=== PATIENT | female | born 1975 | race Caucasian/White ===

== ENCOUNTER 2019-09-09 06:42 | Inpatient (IN) ==
[~2019-09-09 06:42] MED LIST: LIDOCAINE W/ SODIUM BICARB 0.5 ML SYR ONE; LIDOCAINE W/ SODIUM BICARB 0.5 ML SYR SUBD ONE; Lactated Ringers 1,000 ML PRIMARY IV ONE; Nasal Sanitizer POPSWAB ampule 3 AMP (Nozin) PREOP DOSE ENOS SCH; Sodium Chloride 0.9% 250 ML ONE; Vancomycin Inj 1.25gm vial IV ONE; Vancomycin-PHA to Dose IV PRN; ceFAZolin Inj 2gm (Premix) 2 GM/50 ML BAG IV ONE
[2019-09-09 07:00] LABS: BILIRUBIN,URINE NEGATIVE (NEG); CLARITY,URINE CLEAR (CLEAR); COLOR,URINE YELLOW (Y); GLUCOSE, URINE (UA) NEGATIVE (NEG); OCCULT BLOOD,URINE NEGATIVE (NEG); PH,URINE 6.5 (5.0-8.5); PROTEIN,URINE NEGATIVE (NEG); UROBILINOGEN,URINE 0.2 EU/dL (0.2)
[2019-09-09 07:07] LABS: URINE SAMPLE TYPE CLEAN CATCH URINE; URINE SPECIFIC GRAVITY - MAN 1.015
[2019-09-09] MEDS ORDERED: fentaNYL Inj 250 MCG/5 ML VIAL ONE ×3 (07:11→14:11)
[2019-09-09] MEDS ORDERED: KETOROLAC 30 MG/1 ML VIAL ONE ×2 (07:13→14:42)
[2019-09-09] MEDS ORDERED: ONDANSETRON 4 MG/2 ML VIAL ONE ×2 (07:13→14:42)
[2019-09-09] MEDS ORDERED: LIDOCAINE MPF 2% - 5 ML (20 MG/1 ML) ONE (07:13)
[2019-09-09] MEDS ORDERED: DEXAMETHASONE PF 10 MG/1 ML VIAL ONE ×2 (07:13→14:42)
[2019-09-09] MEDS ORDERED: ROCURONIUM 10 MG/1 ML - 5 ML VIAL IVP ONE (07:13)
[2019-09-09] MEDS ORDERED: PROPOFOL 10 MG/1 ML (200 MG/20 ML) VIAL IV ONE (07:13)
[2019-09-09] MEDS ORDERED: SUCCINYLCHOLINE CHLORIDE 20 MG/1 ML - 10 ML ONE (07:13)
[2019-09-09] MEDS ORDERED: Sodium Chloride 0.9% vial 20 ML ONE (07:21)
[2019-09-09] MEDS ORDERED: Gentamicin Inj 40 MG/ML VIAL ONE (07:22)
[2019-09-09] MEDS ORDERED: Vancomycin Inj 1gm vial ONE (07:22)
[2019-09-09] MEDS ORDERED: BUPIVACAINE 0.25% W/ EPI - 10 ML VIAL ONE (07:22)
[2019-09-09] MEDS ORDERED: BACITRACIN 50,000 UNIT VIAL IRRIG ONE ×2 (07:22→13:51)
[2019-09-09] MEDS ORDERED: Sodium Chloride 0.9% vial 10 ML ONE ×2 (10:04→13:51)
[2019-09-09] MEDS ORDERED: Lactated Ringers 1,000 ML PRIMARY IV ONE (12:39)
[2019-09-09] MEDS ORDERED: ONDANSETRON 4 MG/2 ML VIAL IVP PRN (15:24)
[2019-09-09] MEDS ORDERED: MORPHINE SULFATE 2 MG/1 ML IVP PRN ×2 (15:24→16:10)
[2019-09-09] MEDS ORDERED: Metoclopramide Inj 10 MG/2 ML VIAL IVP PRN (15:24)
[2019-09-09] MEDS ORDERED: Prochlorperazine Edisylate Inj 10mg/2ml vial IVP PRN ×2 (15:24→16:10)
[2019-09-09] MEDS ORDERED: LIDOCAINE W/ SODIUM BICARB 0.5 ML SYR SUBD PRN ×2 (15:24)
[2019-09-09] MEDS ORDERED: Meperidine Inj 50 MG/ML CARPUJECT IVP PRN (15:24)
[2019-09-09] MEDS ORDERED: Ondansetron ODT Tab 8 MG TAB PO PRN (15:24)
[2019-09-09] MEDS ORDERED: fentaNYL Inj 100 MCG/2 ML VIAL IVP PRN (15:24)
[2019-09-09] MEDS ORDERED: PROMETHAZINE 25 MG/1 ML VIAL IM PRN ×2 (15:24→16:10)
[2019-09-09] MEDS ORDERED: Lactated Ringers 1,000 ML PRIMARY IV SCH (15:30)
[2019-09-09] MEDS: HYDROmorphone 2 MG/1 ML IVP PRN ×2 (15:38→15:43)
[2019-09-09] MEDS ORDERED: MAGNESIUM CITRATE 296 ML SOLUTION PO PRN (16:10)
[2019-09-09] MEDS ORDERED: BISACODYL 5 MG TABLET PO PRN (16:10)
[2019-09-09] MEDS ORDERED: MAGNESIUM 400 MG/5 ML - 30 ML (MILK OF MAGNESIA) PO PRN (16:10)
[2019-09-09] MEDS ORDERED: DIAZEPAM 10 MG/2 ML (5 MG/1 ML) CARPUJECT IVP PRN (16:10)
[2019-09-09] MEDS ORDERED: Ondansetron ODT Tab 4 MG TAB PO PRN (16:10)
[2019-09-09] MEDS ORDERED: oxyCODONE-ACETAMINOPHEN 5-325 TAB PO PRN (16:10)
[2019-09-09] MEDS ORDERED: DOCUSATE 100 MG CAPSULE PO PRN (16:10)
[2019-09-09] MEDS ORDERED: Fleet Enema 133ml RECTAL PRN (16:10)
[2019-09-09] MEDS ORDERED: Vancomycin-PHA to Dose IV PRN (16:10)
[2019-09-09] MEDS ORDERED: oxyCODONE/APAP 10/325 Tab 1 EACH TAB PO PRN (16:10)
[2019-09-09] MEDS: ceFAZolin Inj 2gm (Premix) 2 GM/50 ML BAG IV SCH (16:51)
[2019-09-09] MEDS: oxyCODONE/APAP 7.5/325 Tab 1 TAB TAB PO PRN ×2 (16:51→20:52)
[2019-09-09] MEDS: DIAZEPAM 10 MG TABLET PO PRN (16:51)
[2019-09-09] MEDS: ETHINYL ESTRADIOL PO SCH ×3 (17:42→21:21)
[2019-09-09] MEDS: DROSPIRENONE PO SCH ×3 (17:42→21:21)
[2019-09-10] MEDS: DIAZEPAM 10 MG TABLET PO PRN (00:04)
[2019-09-10] MEDS: ceFAZolin Inj 2gm (Premix) 2 GM/50 ML BAG IV SCH ×3 (01:40→18:20)
[2019-09-10] MEDS: oxyCODONE/APAP 7.5/325 Tab 1 TAB TAB PO PRN ×4 (05:11→21:15)
[2019-09-10 05:26] LABS: BASOPHILS # (AUTO) 0.01 10*3/UL; BASOPHILS % (AUTO) 0.1 % (0-1); EOSINOPHILS # (AUTO) 0 10*3/UL; EOSINOPHILS % (AUTO) 0 % (0-8); Hematocrit [HCT] 32.2 % (37.0-47.0); Hemoglobin [HGB] 10.6 g/dL (12.0-16.0); LYMPHOCYTES # (AUTO) 0.78 10*3/uL; MEAN CORPUSCULAR HGB CONC 32.9 g/dL (33-37); MEAN CORPUSCULAR VOLUME 87.7 FL (81-99); MEAN PLATELET VOLUME 9.4 FL (7.4-12.2); MONOCYTES % (AUTO) 3.2 % (5-15); NEUTROPHILS # (AUTO) 11.12 10*3/UL; NEUTROPHILS % (AUTO) 90.2 % (50-80); RED BLOOD COUNT 3.67 10^6/uL (4.20-5.40)
[2019-09-10 05:46] LABS: BLOOD UREA NITROGEN 8 mg/dL (7-22); BUN/CREATININE RATIO 11.42 (6-20)
[2019-09-10 05:48] LABS: PLATELET MORPHOLOGY COMMENT NORMAL MORPHOLOGY (NORM); RBC MORPHOLOGY COMMENT NORMAL MORPHOLOGY (NORM); WBC MORPHOLOGY COMMENT NORMAL MORPHOLOGY (NORM)
[2019-09-10] MEDS: OMEPRAZOLE 20 MG CAPSULE PO SCH (06:11)
[2019-09-10] MEDS: CYCLOBENZAPRINE 10 MG TABLET PO SCH ×3 (08:31→21:19)
[2019-09-10] MEDS: FLUCONAZOLE 200 MG TABLET PO SCH (08:31)
[2019-09-10] MEDS: ETHINYL ESTRADIOL PO SCH (20:47)
[2019-09-10] MEDS: DROSPIRENONE PO SCH (20:47)
[2019-09-11] MEDS: ONDANSETRON 4 MG/2 ML VIAL IVP PRN ×2 (03:21→11:22)
[2019-09-11] MEDS: OMEPRAZOLE 20 MG CAPSULE PO SCH ×2 (04:50→06:04)
[2019-09-11] MEDS: oxyCODONE/APAP 7.5/325 Tab 1 TAB TAB PO PRN ×2 (05:50→11:22)
[2019-09-11] MEDS: CALCIUM CARBONATE 500 MG (TUMS) CHEWABLE TABLET PO PRN ×2 (08:30→12:21)
[2019-09-11] MEDS: FLUCONAZOLE 200 MG TABLET PO SCH (10:17)
[2019-09-11] MEDS: CYCLOBENZAPRINE 10 MG TABLET PO SCH (10:17)
[2019-09-11 11:21] VITALS: BP 141/72; RESP 20; TEMP 98.5; O2SAT 97
[2019-09-11] MEDS ORDERED: MAG HYDROX/AL HYDROX/SIMETH 30 ML SUSP PO PRN (11:38)
[2019-09-11] MEDS ORDERED: oxyCODONE/APAP 7.5/325 Tab 1 TAB TAB PO SCH (11:45)
== END 2019-09-11 12:50 | disposition home or self-care (01) | DRG 455 ==
LOC: OPS 06:42 → MED/SURG 15:59
PROVIDERS: ADMIT Neurological Surgery; ATTEND Neurological Surgery